=== PATIENT | female | born 1995 | race African-American/Black ===

== ENCOUNTER 2019-06-15 12:58 | Emergency (ER) | payer BC ==
[~2019-06-15] VITALS: Ht 172.7 cm; Wt 63.5 kg
--- NOTE | 2019-06-15 14:03 | NUR ---
PATIENT TO ROOM 3 AT THIS TIME
[2019-06-15] MEDS ORDERED: SODIUM CHLORIDE 0.9% 1000ML 1,000 ML IV STA (14:11)
[2019-06-15 14:25] LABS: PREGNANCY TEST, URINE NEGATIVE (NEGATIVE)
[2019-06-15 15:03] LABS: BASOPHILS % 0.6 % (0.0-1.0); EOSINOPHILS # (AUTO) 0.1 (0.0-0.4); HEMATOCRIT 28.4 % (34.2-44.1); HEMOGLOBIN 8.8 g/dL (12.0-16.0); LYMPHOCYTES # (AUTO) 1.5 (1.0-3.2); LYMPHOCYTES % 27.6 % (18.0-39.1); MEAN CORPUSCULAR HEMOGLOBIN 24.8 pg (28-32); MONOCYTES # (AUTO) 0.4 (0.2-0.8); MONOCYTES % 7.9 % (4.4-11.3); NEUTROPHILS # (AUTO) 3.4 (2.1-6.9); NEUTROPHILS % 61.5 % (38.7-80.0); PLATELET COUNT 245 x10e3/uL (140-360); RED BLOOD COUNT 3.55 x10e6/uL (3.6-5.1); RED CELL DISTRIBUTION WIDTH 14.1 % (11.7-14.4)
[2019-06-15 15:11] LABS: BILIRUBIN,URINE NEGATIVE (NEGATIVE); CLARITY,URINE CLEAR (CLEAR); COLOR,URINE YELLOW (YELLOW)
[2019-06-15 15:12] LABS: KETONES,URINE TRACE (NEGATIVE); PROTEIN,URINE DIPSTICK TRACE (NEGATIVE)
[2019-06-15 15:13] LABS: LEUKOCYTE ESTERASE ,URINE TRACE (NEGATIVE); NITRITE,URINE NEGATIVE (NEGATIVE); URINE UROBILINOGEN 0.2 mg/dL (0.2 - 1)
[2019-06-15 15:19] LABS: ALANINE AMINOTRANSFERASE 7 IU/L (0-55); ALBUMIN/GLOBULIN RATIO 1.1 (0.8-2.0); ALKALINE PHOSPHATASE 41 IU/L (40-150); ANION GAP 11.6 mmol/L (8-16); BLOOD UREA NITROGEN 11 mg/dL (7-26); BUN/CREATININE RATIO 14 (6-25); CALCIUM 9.5 mg/dL (8.4-10.2); CARBON DIOXIDE 25 mmol/L (22-29); CHLORIDE 101 mmol/L (98-107); CREATININE, SERUM 0.79 mg/dL (0.57-1.11); EST GLOMERULAR FILTRATION RATE > 60 ML/MIN (60-); GLUCOSE 86 mg/dL (74-118); POTASSIUM 3.6 mmol/L (3.5-5.1); SODIUM 134 mmol/L (136-145)
[2019-06-15 15:36] LABS: EPITHELIAL CELLS,URINE RARE /LPF; WBC,URINE (MAN) 0-5 /HPF (0-5)
--- NOTE | 2019-06-15 15:41 | Diagnostic Imaging Report ---
EXAM: US TRANSVAGINAL DATE: 06/15/2019 2:11 PM INDICATION: Pelvic pain COMPARISON: None FINDINGS: The uterus is normal in size measuring 8.8 x 4.3 cm. No focal intrauterine lesion is are identified. The endometrial stripe appears unremarkable measuring up to 1.4 cm in maximal thickness, within normal limits in this premenopausal patient. The right ovary measures 5.8 x 3.3 x 2.6 cm. The left ovary measures 4.2 x 2.2 x 2.4 cm. Normal-sized follicles are noted bilaterally. No abnormal adnexal masses are identified. There is a trace amount of free fluid noted within the pelvic cul-de-sac, likely physiologic. IMPRESSION: Trace amount free fluid noted within the pelvis, likely physiologic in this premenopausal patient. Otherwise, unremarkable pelvic ultrasound examination. Signed by: Dr. David Srinivasan MD on 06/15/2019 3:38 PM
[2019-06-15 16:37] VITALS: BP 129/78
== END 2019-06-15 16:38 | disposition home or self-care (01) ==
LOC: ER 12:58
DX: R10.84 Generalized abdominal pain (principal); R11.2 Nausea with vomiting, unspecified; R19.7 Diarrhea, unspecified
CPT/HCPCS: 36415; 76830; 80053; 81001; 81025; 85025; 99284; J7030